=== PATIENT | female | born 1980 | race Caucasian/White ===

== ENCOUNTER 2018-04-09 22:50 | Inpatient (IN) | payer SELFPAY ==
[2018-04-09] MEDS ORDERED: LORazepam 1 MG TAB PO ONE (22:51)
--- NOTE | 2018-04-09 22:53 | EDPHY ---
H & P Source: Patient, Police Time Seen by Provider: 04/09/18 22:51 HPI/ROS: HPI CHIEF COMPLAINT: M1 hold by [place] [employer]. HISTORY OF PRESENT ILLNESS: 37-year-old female, history of suicide attempt, spent a year at [facility], inpatient psychiatric, has a history of bipolar disorder, presents emergency room by police in handcuffs for aggressive, agitated behavior, additionally being gravely disabled, and doing methamphetamine. Patient arrived to the emergency room rather agitated and upset. However she denies SI or HI. She states she has really been eating. Past Medical History: Bipolar disorder Past Surgical History: No recent surgery Social History: Methamphetamine use. Family History: Noncontributory ROS REVIEW OF SYSTEMS: 10 Systems were reviewed and negative with the exception of the elements mentioned in the history of present illness. Exam Constitutional agitated, angry, triage nursing summary reviewed, vital signs reviewed, awake/alert. Eyes normal conjunctivae and sclera, EOMI, PERRLA. HENT normal inspection, atraumatic, moist mucus membranes, no epistaxis, neck supple/ no meningismus, no raccoon eyes. Respiratory clear to auscultation bilaterally, normal breath sounds, no respiratory distress, no wheezing. Cardiovascular rate normal, regular rhythm, no murmur, no edema, distal pulses normal. Gastrointestinal soft, non-tender, no rebound, no guarding, normal bowel sounds, no distension, no pulsatile mass. Genitourinary no CVA tenderness. Musculoskeletal no midline vertebral tenderness, full range of motion, no calf swelling, no tenderness of extremities, no meningismus, good pulses, neurovascularly intact. Skin pink, warm, & dry, no rash, skin atraumatic. Neurologic awake, alert and oriented x 3, AAOx3, moves all 4 extremities equally, motor intact, sensory intact, CN II-XII intact, normal cerebellar, normal vision, normal speech. Psychiatric agitated angry. Heme/Lymph/Immune no lymphadenopathy. Differential Diagnosis: Includes but is not limited to in a particular order underlying schizophrenia, bipolar, mood disorder, depression, suicidal ideation , gravely disabled, drug abuse. Medical Decision Making: Plan for this patient IV establishment, blood draw for medical clearance, drug screen, patient on M1 hold by police. Will need mental health evaluation. 1 mg p.o. Ativan ordered for agitation/anxiety at this time. Re-evaluation: No acute events overnight. 7:00 a.m.: Signed over To Dr. Whitfield. Patient is pending mental health evaluation. Patient has had previous admissions to [facility]. Received Ativan last night sleeping. (Scout Cornelius) Constitutional: Initial Vital Signs Temperature (C) 36.4 C 04/09/18 23:00 Heart Rate 90 04/09/18 23:00 Blood Pressure 149/90 H 04/09/18 23:00 O2 Sat (%) 96 04/09/18 23:00 O2 Delivery Mode Room Air Allergies/Adverse Reactions: No Known Allergies Allergy (Unverified 04/09/18 22:56) Home Medications: Medication Instructions Recorded Depakote 04/09/18 Seroquel 04/09/18 Medical Decision Making Other Provider: I assumed care of this patient at 7:[address] Cornelius. At 11:30 a.m. She is becoming somewhat more anxious and agitated. 1 mg of p.o. Ativan ordered. She has been evaluated but the results of that evaluation are not yet available. Arrangements have been made for her to be transferred to [address] [place] [address] for patient psychiatric treatment. I have completed the EMTALA form. (Melanie Whitfield) - Data Points Laboratory Results: Laboratory Results 04/09/18 23:05 04/09/18 23:05 Medications Given: Discontinued Medications Lorazepam (Ativan) 1 mg PO EDNOW ONE Stop: 04/09/18 22:52 Last Admin: 04/09/18 23:15 Dose: 1 mg Lorazepam (Ativan) 1 mg PO EDNOW ONE Stop: 04/10/18 11:37 Last Admin: 04/10/18 11:39 Dose: 1 mg Departure - Departure Disposition: [facility] IP Clinical Impression: Bipolar 1 disorder Condition: Good Referrals: Patient,NotPresent [Unknown] - As per Instructions
[2018-04-09 23:25] LABS: PLATELET COUNT 206 10^3/uL (150-400)
[2018-04-10] MEDS ORDERED: LORazepam 1 MG TAB PO ONE ×2 (11:36→16:22)
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
--- NOTE | 2018-04-10 13:41 | ASMTTCLDSP ---
TLC Discharge Disposition Disposition: Answers: Admit Disposition Notes: Notes: In consultation with [facility] ED physician, Melanie Whitfield MD and on-call clinician, Marcus Valiente APN both concurred that pt appears to meet 27-65 criteria requiring psychiatric hospitalization as pt appears to be at risk of harm to gravely disabled due to a mental illness condition. Pt was given the 3N prohibited belongings list while in the ED. Discharge Concerns/Recommendations: Notes: Pt will be admitted to [facility] unit. Was patient given the Answers: Yes Inpatient Behavioral Health Prohibited Belongings List while in the ED? For inpatient Marcus Valiente admission, the following psychiatrist agreed to accept patient for admission to Behavioral Health ([facility]): Type of Hold: Answers: M1/72-hour Hold Hold initiated by: Answers: Police Date Signed: 04/10/2018 01:41 PM Electronically Signed By:Milvia Weathers
[2018-04-10] MEDS ORDERED: LORazepam 1 MG TAB ONE (16:23)
[2018-04-10] MEDS ORDERED: MAGNESIUM HYDROXIDE 30 ML UDCUP PO PRN (18:29)
[2018-04-10] MEDS ORDERED: MAG HYDROX/AL HYDROX/SIMETH 30 ML UDCUP PO PRN (18:29)
[2018-04-10] MEDS ORDERED: ACETAMINOPHEN 325 MG TAB PO PRN (18:30)
[2018-04-10] MEDS ORDERED: OLANZapine DISINTEGR 10 MG TAB PO PRN (18:31)
[2018-04-10] MEDS ORDERED: NICOTINE POLACRILEX 2 MG GUM B PRN (18:31)
[2018-04-10] MEDS ORDERED: DIVALPROEX ER 250 MG TAB PO SCH (19:00)
[2018-04-10] MEDS: LORazepam 0.5 MG TAB PO PRN (19:01)
[2018-04-10] MEDS: DIVALPROEX ER 500 MG TAB PO SCH (19:01)
[2018-04-10] MEDS: QUEtiapine FUMARATE 300 MG TAB PO SCH ×2 (19:01→19:07)
--- NOTE | 2018-04-11 08:38 | PDGENHP ---
History and Physical - Chief Complaint admitted to inpatient behavioral health - History of Present Illness Says she was released 10 days ago from [facility] inpatient psychiatric unit. Says she was there for a year. Came to [place] because her mom lives here, and she needs her mom's help to get her 5 year old daughter back (staying with patient's GM in [place] currently). Denies any cough, fever, congestion, sore throat, n/v/d/constipation. Denies headache/rashes/back pain/CP/shortness of breath. History Information - Allergies/Home Medication List Allergies/Adverse Reactions: No Known Allergies Allergy (Verified 04/10/18 16:02) Home Medications: Divalproex ER [Depakote ER 250 MG (*)] 250 mg PO HS 04/09/18 [Last Taken Unknown ] QUEtiapine FUMARATE [Seroquel 300mg (*)] 600 mg PO HS 04/09/18 [Last Taken Unknown] Divalproex ER [Depakote ER 500 MG (*)] 1,000 mg PO HS 04/10/18 [Last Taken Unknown] I have personally reviewed and updated: medical history, social history, surgical history - Past Medical History Additional medical history: bipolar disorder, TOB use, history of methamphetamine use, no PCP - Surgical History Reports: hysterectomy (says for endometriosis) - Social History Smoking Status: Light smoker Alcohol Use: Sober Additional social history: denies any current methamphetamine use. Has a daughter in [place] staying with her GM, and 2 teen sons staying with her Aunt also. Review of Systems Review of Systems: ROS: 10pt was reviewed & negative except for what was stated in HPI & below Physical Exam Physical Exam: Temp Pulse Resp BP Pulse Ox 97.5 F 86 16 141/63 H 95 04/11/18 06:00 04/11/18 06:00 04/11/18 06:00 04/11/18 06:00 04/11/18 06:00 Constitutional: no apparent distress, not in pain, unkempt Eyes: anicteric sclera, EOMI Ears, Nose, Mouth, Throat: moist mucous membranes, hearing normal Cardiovascular: regular rate and rhythym, no murmur, rub, or gallop Respiratory: no respiratory distress, no rales or rhonchi, clear to auscultation Gastrointestinal: normoactive bowel sounds, soft, non-tender abdomen, no palpable masses, No ascites, No hepatosplenomegally, No guarding, No rebound, No distension Skin: warm, normal color Psychiatric: interacting appropriately Lymph, Heme, Immunologic: no cervical LAD Lab Data & Imaging Review 04/09/18 23:05 12 23:05 WBC 5.44 10^3/uL (3.80-9.50) 04/09/18 23:05 RBC 3.95 10^6/uL (4.18-5.33) L 04/09/18 23:05 Hgb 13.0 g/dL (12.6-16.3) 04/09/18 23:05 Hct 38.5 % (38.0-47.0) 04/09/18 23:05 MCV 97.5 fL (81.5-99.8) 04/09/18 23:05 MCH 32.9 pg (27.9-34.1) 04/09/18 23:05 MCHC 33.8 g/dL (32.4-36.7) 04/09/18 23:05 RDW 12.7 % (11.5-15.2) 04/09/18 23:05 Plt Count 206 10^3/uL (150-400) 04/09/18 23:05 MPV 11.1 fL (8.7-11.7) 04/09/18 23:05 Neut % (Auto) 44.1 % (39.3-74.2) 04/09/18 23:05 Lymph % (Auto) 45.6 % (15.0-45.0) H 04/09/18 23:05 [place] % (Auto) 10.1 % (4.5-13.0) 04/09/18 23:05 Eos % (Auto) 0.0 % (0.6-7.6) L 04/09/18 23:05 Baso % (Auto) 0.0 % (0.3-1.7) L 04/09/18 23:05 Nucleat RBC Rel Count 0.0 % (0.0-0.2) 04/09/18 23:05 Absolute Neuts (auto) 2.40 10^3/uL (1.70-6.50) 04/09/18 23:05 Absolute Lymphs (auto) 2.48 10^3/uL (1.00-3.00) 04/09/18 23:05 Absolute Monos (auto) 0.55 10^3/uL (0.30-0.80) 04/09/18 23:05 Absolute Eos (auto) 0.00 10^3/uL (0.03-0.40) L 04/09/18 23:05 Absolute Basos (auto) 0.00 10^3/uL (0.02-0.10) L 04/09/18 23:05 Absolute Nucleated RBC 0.00 10^3/uL (0-0.01) 04/09/18 23:05 Immature Gran % 0.2 % (0.0-1.1) 04/09/18 23:05 Immature Gran # 0.01 10^3/uL (0.00-0.10) 04/09/18 23:05 Sodium 135 mEq/L (135-145) 04/09/18 23:05 Potassium 3.8 mEq/L (3.5-5.2) 04/09/18 23:05 Chloride 102 mEq/L (97-110) 04/09/18 23:05 Carbon Dioxide 15 mEq/l (22-31) L 04/09/18 23:05 Anion Gap 18 mEq/L (6-14) H 04/09/18 23:05 BUN 18 mg/dL (7-23) 04/09/18 23:05 Creatinine 0.8 mg/dL (0.6-1.0) 04/09/18 23:05 Estimated GFR > 60 04/09/18 23:05 Glucose 70 mg/dL (70-100) 04/09/18 23:05 Hemoglobin A1c 4.6 % (4.0-6.0) 04/10/18 22:19 Estim Average Glucose 85 mg/dL (68-126) 04/10/18 22:19 Calcium 9.6 mg/dL (8.5-10.4) 04/09/18 23:05 Total Bilirubin 0.9 mg/dL (0.1-1.4) 04/10/18 11:50 Conjugated Bilirubin 0.4 mg/dL (0.0-0.5) 04/10/18 11:50 Unconjugated Bilirubin 0.5 mg/dL (0.0-1.1) 04/10/18 11:50 AST 31 IU/L (14-46) 04/10/18 11:50 ALT 32 IU/L (9-52) 04/10/18 11:50 Alkaline Phosphatase 75 IU/L (38-126) 04/10/18 11:50 Total Protein 7.5 g/dL (6.3-8.2) 04/10/18 11:50 Albumin 4.8 g/dL (3.5-5.0) 04/10/18 11:50 Triglycerides 111 mg/dL (35-135) 04/10/18 11:50 Cholesterol 223 mg/dL (140-200) H 04/10/18 11:50 Cholesterol Risk Factr 0.8 (0.2-1.0) 04/10/18 11:50 LDL Cholesterol, Calc 140 mg/dL (70-100) H 04/10/18 11:50 LDL Risk Factor 0.8 (0.2-1.0) 04/10/18 11:50 VLDL Cholesterol 22 mg/dL (8-25) 04/10/18 11:50 Non-HDL Cholesterol 162 mg/dL (90-129) H 04/10/18 11:50 HDL Cholesterol 61 mg/dL (40-80) 04/10/18 11:50 LDL/HDL Ratio 2.29 RATIO (1.00-3.22) 04/10/18 11:50 Cholesterol/HDL Ratio 3.66 RATIO (1.00-4.44) 04/10/18 11:50 Beta HCG, Qual NEGATIVE 04/09/18 23:05 Urine Opiates Screen NEGATIVE (NEGATIVE) 04/09/18 23:05 Urine Barbiturates NEGATIVE (NEGATIVE) 04/09/18 23:05 Ur Phencyclidine Scrn NEGATIVE (NEGATIVE) 04/09/18 23:05 Ur Amphetamine Screen NEGATIVE (NEGATIVE) 04/09/18 23:05 U Benzodiazepines Scrn NEGATIVE (NEGATIVE) 04/09/18 23:05 Urine Cocaine Screen NEGATIVE (NEGATIVE) 04/09/18 23:05 U Marijuana (THC) Screen NEGATIVE (NEGATIVE) 04/09/18 23:05 Ethyl Alcohol < 10 mg/dL (0-10) 04/09/18 23:05 Assessment & Plan Assessment: Bipolar 1 disorder (Acute) -per inpatient behavioral health team TOB abuse -OK patch or gum if desired for withdrawal symptoms Thank you for asking the hospital medicine group for assisting in her care. Please contact us if any concerns or symptoms arise during her hospitalization.
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
--- NOTE | 2018-04-11 14:51 | ASMTCMCOM ---
CM Note CM Note Notes: CC was able to gather client's signature for Med-data and scanned to [facility] for poss. Medicaid. Date Signed: 04/11/2018 02:51 PM Electronically Signed By:Dennis Landry
--- NOTE | 2018-04-11 15:11 | ASMTCMCOM ---
CM Note CM Note Notes: Pt and CC completed MTP and placed in pt's chart. Pt. reports she is not suicidal. Pt. stated her mother, Elizabeth, called the police because pt. was not eating or taking her medications. Pt. stated she has court on 04/14 for possession of narcotics Pt. reports she will "sometimes have a beer". Pt. reports she "sometimes do meth if around". Pt. denied smoking THC. Pt. denied all other substance use. Pt. stated she can return home and is not upset with her mother. Pt. denied SI, Hi, AVH and paranoia. Pt reported to MD her 5 year old daughter is with her paternal grandmother. Pt. presents as in bed, falling asleep during interview, no eye contact, eyes closed, passive, and somewhat cooperative. Staff report pt. sleeping at least 10 hours and being medication compliant. Date Signed: 04/11/2018 03:10 PM Electronically Signed By:Rosa Owens
[2018-04-11] MEDS: LORazepam 0.5 MG TAB PO PRN ×2 (16:47→20:14)
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
[2018-04-11] MEDS: QUEtiapine FUMARATE 200 MG TAB PO SCH (20:14)
[2018-04-11] MEDS: DIVALPROEX ER 500 MG TAB PO SCH (20:14)
[2018-04-12] MEDS: LORazepam 0.5 MG TAB PO PRN (13:15)
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
--- NOTE | 2018-04-12 17:36 | SOAPPROG ---
SOAP Progress Note Assessment/Plan: Assessment: 37 yo with h/o polysubstance dependence and substance induced psychosis. Admitted after [facility] called 911 b/c patient had been using meth and was acting paranoid. Plan: 04/12/18 17:33 1. Patient continues to sleep most of the day (12+ hrs since last night). 2. Not participating in any groups or milieu activities. 3. [facility] expires tonight. Will change legal status to voluntary. 4. Likely d/c tomorrow once f/u appts finalized. 5. Patient encouraged to speak to [facility] to confirm she has a place to stay. Subjective: Patient has been sleeping most of the time she has been in hospital. She admits she usually needs a few days to catch up on sleep after she's been using a lot of meth. Patient has not exhibited any symptoms of psychosis since she was admitted. She does not exhibit any s/s of donna. She denies any SI/HI. Objective: Vital Signs Temp Pulse Resp BP Pulse Ox 36.4 C 78 16 98/60 L 94 04/11/18 06:00 04/12/18 06:00 04/12/18 06:00 04/12/18 06:00 04/12/18 06:00 MSE: Affect: Cooperative Mood: "OK" TP: Goal-directed TC: Denies any SI/HI Insight/Judgment: Poor - Time Spent With Patient Time Spent With Patient: 15" - Pending Discharge Pending Discharge Within 24 Hours: No Pending Discharge Within 48 Hours: No ICD10 Worksheet Patient Problems: Problems Problem Status Onset Bipolar 1 disorder Acute
[2018-04-12] MEDS: DIVALPROEX ER 500 MG TAB PO SCH (20:52)
[2018-04-12] MEDS: QUEtiapine FUMARATE 200 MG TAB PO SCH (20:52)
--- NOTE | 2018-04-13 09:20 | SOAPPROG ---
SOAP Progress Note Assessment/Plan: Assessment: Substance-induced psychosis. Schizoaffective Disorder, Bipolar Type. Slight improvement noted. (see subjective/objective note). Patient is not safe to discharge at this time as patient continues to exhibit signs of psychosis, and express psychosis symptoms. Patient requires continued inpatient care because of current psychosis, and requires inpatient level of care to stabilize in order to no longer be gravely disabled due to mental illness. Patient could benefit from continued inpatient hospitalization for crisis stabilization, safety, and medication evaluation. Plan: 1. Psychotropic medications: After reviewing options, risks, and benefits patient agrees to continue current, and increase Seroquel to 300 mg po QHS. No other medication changes at this time as more time is needed to determine ongoing tolerability and efficacy. Plan is to continue to observe patient for response and side effects from medications, and ongoing monitoring and evaluation. 2. Review with patient informed consent and recommendations for psychotropic medication treatment listed below 3. Labs: no additional labs at this time 4. Therapy: continue milieu and group therapy 5. Further investigation including gathering information from patients relatives and review of past case records to inform treatment plan. 6. Safety/Wellness plan and follow-up outpatient appointments to be established prior to discharge. Next steps are for patient to meet with care team assistant to plan a safe discharge plan and establish outpatient services for ongoing treatment. 7. Confer with inpatient treatment team regarding treatment plan. 8. Psychosocial stressors addressed through telephonic nurse case manager 9. Legal status: [facility] 10. Consider discharge later this week if patient is in stable condition, safe, and has a safe discharge plan. 11. Substance abuse interventions: methamphetamine PSYCHOTROPIC MEDICATION TREATMENT INFORMED CONSENT and RECOMMENDATIONS: Review nature of condition, diagnosis, and prognosis. Review nature and purpose of psychotropic medication treatment. Review type of psychotropic medications being ordered. Review risk and benefits of psychotropic medication treatment. Review probable length of time patient will need to take medications. Review risk and benefits of not undergoing psychotropic medication treatment. Review alternative treatments to psychotropic medications. Review psychotropic medications contraindications, drug-drug interactions, side effects, and importance of reporting any side effects to a psychiatric provider or nurse during inpatient hospitalization, and upon discharge to patients psychiatric outpatient provider, primary care provider, or other health ocular care technologist. Review importance of asking a nurse, psychiatric provider, or primary care provider any questions or problems concerning the psychotropic medications. Verify patient understands the information that has been provided, and understands, accepts, and agrees to psychotropic medications. Review patients safety plan and importance of patient to report to staff while hospitalized if patient is ever a danger to self/others, or unable to care for self, and upon discharge, the importance for patient to contact [facility] or [facility], or go to the nearest emergency room, if patient is ever a danger to self/others, or unable to care for self. Recommend that upon discharge patient establish medication management treatment with a psychiatric provider, establishes routine therapy appointments, and follow-up with primary care provider. Verify patient understands and agrees to these recommendations. 04/13/18 09:22 Subjective: Following up with patient for evaluation of psychosis and safety. Patient reports, "Doing better, just a little anxious about being here. I'm here because my mom said I wasn't taking my medications with food." Patient expresses the following psychiatric symptoms "a little anxious." Patient reports taking medications as prescribed, and describes response to medications as fair. Patient does not report undesirable side effects from the medications , and agrees to continue current medications. Patient agrees to increase Seroquel to 300 mg po QHS. Patient describes getting 8 hours of sleep, and reports she feels rested today. Objective: Vital Signs Temp Pulse Resp BP Pulse Ox 36.4 C 71 14 100/65 94 04/13/18 06:00 04/13/18 06:00 04/13/18 06:00 04/13/18 06:00 04/13/18 06:00 NURSING REPORT: Consulted with nursing for update on patients progress in treatment. Nurses report patient is not engaged in treatment, attends some groups, slept 8 hours, expresses the following psychiatric symptoms: anxious; exhibits the following psychiatric symptoms: disorganized, tangential; is eating all meals, is agreeable to medications and taking as prescribed with no report of side effects, with no s/s of EPS/akathisia, and denies SI/HI, denies A /V hallucinations, and denies delusions. MD REPORT FROM WEEKEND: Polysubstance addiction including meth, ETOH, LSD. Jeanine Argueta x 10 months in 2017, DCmarisel in March, spent 1.5 weeks in correction and then stayed at [facility] using meth. Restarted meds took at [facility]. SUBSTANCE ABUSE BRIEF INTERVENTION: Brief intervention regarding the risks of methamphetamine abuse is provided to patient with goal to reduce the risk of harm that could result from the continued use of methamphetamine, with the general aim to investigate the problem, raise awareness of problem, develop a solution with the patient, recommend a specific change or activity, and motivate the patient toward change. Assess substance abuse behavior and give supportive advice about harm reduction, recommend a reduction in hazardous/at- risk consumption patterns, and facilitate referrals for additional specialized treatment with healthcare interpreter. Intermediate goal is for the patient to quit and attend outpatient substance abuse treatment. Intervention focus on intermediate goals to allow for more immediate success in the treatment process to keep the patient motivated. Review following with patient: Methamphetamine use risks: Short-term: insomnia, irritability, aggressive behavior, hallucinations, delusions, intellectual deficits, anxiety, depression, convulsions, damage to blood vessels in the brain causing strokes, high fevers, collapse of the circulatory system. Long-term: damage to nerve pathways, maybe irreversibly; overstimulation to dopamine impairing dopamine transport and reducing efficiency of dopamine receptors, the reward system becomes worn out, leading to inability to experience pleasure for years. OUTPATIENT SUBSTANCE ABUSE TREATMENT: Patient referred to outpatient provider and treatment for continued treatment related to substance abuse. MSE: The patient is a well-nourished female to male looking stated chronological age. Attire is appropriate dress is casual. Grooming status is inappropriate and disheveled. Ambulation is independent. Gait is normal and coordinated. Posture is normal and relaxed. Eye contact is inappropriate and staring. Motor activity is appropriate with purposeful, organized, coordinated movements; with no involuntary movements. Attitude is fairly cooperative, defensive and guarded at times. Patient appears distracted and does not relate well to this interviewer. Language production is spontaneous. R/R/V normal. Articulation is clear. Patient reports mood as okay with flat, inappropriate affect. Patients thought process is non-linear and illogical, disorganized. Patient does not report suicidal/homicidal thoughts, ideas, or plans. Patient denies auditory, visual hallucinations. Patient denies delusions. Patient does not appear to be attending to internal stimuli. Patients attention and concentration are poor. Patient is oriented to person, place, time. Patients insight is poor. Patients judgment is poor. - Time Spent With Patient Time Spent With Patient: 15 minutes, met with patient individually. - Pending Discharge Pending Discharge Within 24 Hours: No Pending Discharge Within 48 Hours: No ICD10 Worksheet Patient Problems: Problems Problem Status Onset Bipolar 1 disorder Acute
[2018-04-13] MEDS: LORazepam 0.5 MG TAB PO PRN ×2 (09:27→13:40)
[2018-04-13] MEDS ORDERED: LORazepam 0.5 MG TAB PO PRN (13:59)
[2018-04-13] MEDS: GABAPENTIN 300 MG CAP PO SCH ×2 (16:02→20:16)
[2018-04-13] MEDS: DIVALPROEX ER 500 MG TAB PO SCH (20:17)
[2018-04-13] MEDS: QUEtiapine FUMARATE 200 MG TAB PO SCH (20:17)
--- NOTE | 2018-04-14 08:46 | SOAPPROG ---
SOAP Progress Note Assessment/Plan: Assessment: Substance-induced psychosis. Schizoaffective Disorder, Bipolar Type complicated by methamphetamine use. Slight improvement noted. (see subjective/ objective note). Patient is not safe to discharge at this time as patient continues to exhibit signs of psychosis, and express psychosis symptoms. Patient requires continued inpatient care because of current psychosis, and requires inpatient level of care to stabilize in order to no longer be gravely disabled due to mental illness. Patient could benefit from continued inpatient hospitalization for crisis stabilization, safety, and medication evaluation. Patient could benefit from therapeutic VPA level prior to discharge with level ordered for tomorrow AM. Patient likely reaching baseline and plan to discharge within the next few days. Plan: 1. Psychotropic medications: After reviewing options, risks, and benefits patient agrees to continue current medications. No medication changes at this time as more time is needed to determine ongoing tolerability and efficacy. Plan is to continue to observe patient for response and side effects from medications, and ongoing monitoring and evaluation. 2. Review with patient informed consent and recommendations for psychotropic medication treatment listed below 3. Labs: VPA level 04/15/18 4. Therapy: continue milieu and group therapy 5. Further investigation including gathering information from patients relatives and review of past case records to inform treatment plan. 6. Safety/Wellness plan and follow-up outpatient appointments to be established prior to discharge. Next steps are for patient to meet with child adolescent care to plan a safe discharge plan and establish outpatient services for ongoing treatment. 7. Confer with inpatient treatment team regarding treatment plan. 8. 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 Legal status: [facility] 10. Consider discharge later this week if patient is in stable condition, safe, and has a safe discharge plan. 11. Substance abuse interventions: methamphetamine PSYCHOTROPIC MEDICATION TREATMENT INFORMED CONSENT and RECOMMENDATIONS: Review nature of condition, diagnosis, and prognosis. Review nature and purpose of psychotropic medication treatment. Review type of psychotropic medications being ordered. Review risk and benefits of psychotropic medication treatment. Review probable length of time patient will need to take medications. Review risk and benefits of not undergoing psychotropic medication treatment. Review alternative treatments to psychotropic medications. Review psychotropic medications contraindications, drug-drug interactions, side effects, and importance of reporting any side effects to a psychiatric provider or nurse during inpatient hospitalization, and upon discharge to patients psychiatric outpatient provider, primary care provider, or other health childcare attendant. Review importance of asking a nurse, psychiatric provider, or primary care provider any questions or problems concerning the psychotropic medications. Verify patient understands the information that has been provided, and understands, accepts, and agrees to psychotropic medications. Review patients safety plan and importance of patient to report to staff while hospitalized if patient is ever a danger to self/others, or unable to care for self, and upon discharge, the importance for patient to contact [facility] or [facility], or go to the nearest emergency room, if patient is ever a danger to self/others, or unable to care for self. Recommend that upon discharge patient establish medication management treatment with a psychiatric provider, establishes routine therapy appointments, and follow-up with primary care provider. Verify patient understands and agrees to these recommendations. 04/14/18 08:48 Subjective: Following up with patient for evaluation of psychosis and safety. Patient reports, "Doing better, feel much better." Patient expresses the following psychiatric symptoms "little anxious." Patient reports taking medications as prescribed, and describes response to medications as fair. Patient does not report undesirable side effects from the medications, and agrees to continue current medications. Patient describes getting 8 hours of sleep, and reports she feels rested today. Objective: Vital Signs Temp Pulse Resp BP Pulse Ox 36.4 C 73 15 99/61 L 94 04/14/18 06:00 04/14/18 06:00 04/14/18 06:00 04/14/18 06:00 04/14/18 06:00 NURSING REPORT: Consulted with nursing for update on patients progress in treatment. Nurses report patient is not engaged in treatment, attends some groups, slept 8 hours, expresses the following psychiatric symptoms: anxious; exhibits the following psychiatric symptoms: anxious; is eating all meals, is agreeable to medications and taking as prescribed with no report of side effects , with no s/s of EPS/akathisia, and denies SI/HI, denies A/V hallucinations, and denies delusions. MD REPORT FROM WEEKEND: Polysubstance addiction including meth, ETOH, LSD. Jeanine Kendall x 10 months in 2017, DCd in March, [facility].5 [facility] in [facility] and then stayed at [facility] using meth. Restarted meds took at [facility]. Labs: VPA level 04/15/18 SUBSTANCE ABUSE BRIEF INTERVENTION: Brief intervention regarding the risks of methamphetamine abuse is provided to patient with goal to reduce the risk of harm that could result from the continued use of methamphetamine, with the general aim to investigate the problem, raise awareness of problem, develop a solution with the patient, recommend a specific change or activity, and motivate the patient toward change. Assess substance abuse behavior and give supportive advice about harm reduction, recommend a reduction in hazardous/at- risk consumption patterns, and facilitate referrals for additional specialized treatment with client care specialist. Intermediate goal is for the patient to quit and attend outpatient substance abuse treatment. Intervention focus on intermediate goals to allow for more immediate success in the treatment process to keep the patient motivated. Review following with patient: Methamphetamine use risks: Short-term: insomnia, irritability, aggressive behavior, hallucinations, delusions, intellectual deficits, anxiety, depression, convulsions, damage to blood vessels in the brain causing strokes, high fevers, collapse of the circulatory system. Long-term: damage to nerve pathways, maybe irreversibly; overstimulation to dopamine impairing dopamine transport and reducing efficiency of dopamine receptors, the reward system becomes worn out, leading to inability to experience pleasure for years. OUTPATIENT SUBSTANCE ABUSE TREATMENT: Patient referred to outpatient provider and treatment for continued treatment related to substance abuse. MSE: The patient is a well-nourished female to male looking stated chronological age. Attire is appropriate dress is casual. Grooming status is inappropriate and disheveled. Ambulation is independent. Gait is normal and coordinated. Posture is normal and relaxed. Eye contact is inappropriate and staring. Motor activity is appropriate with purposeful, organized, coordinated movements; with no involuntary movements. Attitude is fairly cooperative, defensive and guarded at times. Patient appears distracted and does not relate well to this interviewer. Language production is spontaneous. R/R/V normal. Articulation is clear. Patient reports mood as okay with flat and inappropriate affect. Patients thought process is blocked, linear and fairly logical, with no loose associations, no tangential thought. Patient does not report suicidal/homicidal thoughts, ideas, or plans. Patient denies auditory, visual hallucinations. Patient denies delusions. Patient does not appear to be attending to internal stimuli. Patients attention and concentration are poor. Patient is oriented to person, place, time. Patients insight is poor. Patients judgment is poor. - Time Spent With Patient Time Spent With Patient: 15 minutes, met with patient individually. - Pending Discharge Pending Discharge Within 24 Hours: Yes Pending Discharge Within 48 Hours: No Pending Discharge Date: 04/15/18 Pending Discharge Time: 11:00 ICD10 Worksheet Patient Problems: Problems Problem Status Onset Bipolar 1 disorder Acute
[2018-04-14] MEDS: GABAPENTIN 300 MG CAP PO SCH ×3 (10:01→20:32)
[2018-04-14] MEDS: DIVALPROEX ER 500 MG TAB PO SCH (18:01)
[2018-04-14] MEDS: QUEtiapine FUMARATE 200 MG TAB PO SCH (20:31)
[2018-04-15 06:54] VITALS: BP 91/52
--- NOTE | 2018-04-15 08:12 | ASMTBHDC ---
Notes Note: Notes: Please note, that client refused to sign RISHI for follow up care, etc. Client given next court date for her [place] [address] Case # [id number] and walk-in information for [facility]. Bus pass provided.* Date Signed: 04/15/2018 08:11 AM Electronically Signed By:Dennis Landry
[2018-04-15] MEDS: GABAPENTIN 300 MG CAP PO SCH (10:22)
--- NOTE | 2018-04-15 13:32 | BDS ---
REASON FOR ADMISSION: From the ED note dated 04/09/2018, patient with history of suicide attempt, psychiatric history including hospitalization at [facility] , history of bipolar disorder, presented to the emergency room by police in handcuffs for aggressive, agitated behavior, gravely disabled, and recent methamphetamine use. Patient arrived to the emergency room agitated and upset. Patient was admitted involuntarily on an M1 hold due to being gravely disabled due to a mental illness. The patient was admitted for safety, crisis stabilization, and medication management. ADMITTING DIAGNOSES: 1. Schizoaffective disorder, bipolar type. 2. Methamphetamine abuse. ADMISSION PHYSICAL EXAM: Patient was seen for history and physical on 2017, for medical clearance for inpatient psychiatric hospitalization and treatment. The patient was medically cleared for inpatient psychiatric hospitalization and treatment. For further details, please refer to history and physical dated 04/11/2018. ADMISSION LABS: 1. 04/09/2018: CBC was within normal limits, except red blood cells were low at 3.95, lymphocytes were elevated at 45.6, eosinophils were low at 0.0, basophils were low at 0.0, absolute eosinophils were low at 0.00, and absolute basophils were low at 0.00. 2. 04/09/2018: BMP was within normal limits, except carbon dioxide was low at 15. Anion gap was elevated at 18. 3. 04/09/2018: Hemoglobin A1c was within normal limits at 4.6. 4. 04/10/2018: Liver function was within normal limits. 5. 04/10/2018: Lipid panel within normal limits, except cholesterol was elevated at 223, LDL cholesterol calculated was elevated at 140, and non-HDL cholesterol was elevated at 162. 6. 04/09/2018: Beta hCG qualitative test was negative. 7. 04/09/2018: Toxicology screen negative for all substances of abuse and negative for ethyl alcohol. 8. 04/15/2018: Valproic acid 97.7 at current Depakote ER 1000 mg p.o. q.h.s. MAJOR PROCEDURES OR TESTS: None. HOSPITAL COURSE: The most prominent symptoms and behaviors while the patient was here were irritability, agitation. The patient spent much of her time in her room, sleeping, withdrawn. Treatment modalities utilized were milieu and group therapy. Depakote ER 1000 mg p.o. q.h.s. was continued to target mood symptoms, was tolerated with no report of side effects and with good response. Valproic acid level at time of admission was 97.7. Seroquel 300 mg p.o. q.h.s. was started to target mood and psychosis symptoms, was tolerated with no report of side effects and with good response. Gabapentin 300 mg p.o. t.i.d. was started to target anxiety symptoms, was tolerated with no report of side effects and with good response. Patient has improved considerably, with no signs of psychiatric symptoms and no psychiatric symptoms expressed at time of discharge. Patient reports she has improved since admission, states to be in stable condition, feels safe to discharge, and she contracts for safety. Patient's response to treatment was good. There were no adverse or unexpected results of treatment. Patient was safe throughout her stay, active in treatment , engaged in groups, and was appropriate with staff and other patients. Patient met with the treatment team prior to discharge to assess readiness to discharge and review discharge plan. The treatment team consensus is the patient is in stable condition, has a safe discharge plan, and is ready to discharge today. CONDITION ON DISCHARGE: Patient is in stable condition and is no longer a danger to self or others, and is not gravely disabled due to mental illness. Patient is no longer in need of inpatient level of care, and can be safely and effectively treated within the community. The patients level of risk at time of discharge is low. MSE: The patient is casually dressed and with good hygiene , and looks stated age. Patient is sitting, posture is upright, and position is relaxed. Patient appears awake, alert, and responds appropriately and reasonably during interview. Patient is engaged, relates well to interviewer, and emotional facial expression is appropriate to situation and changes appropriately with topic. Patient is cooperative, makes comfortable eye contact , and movements are voluntary, deliberate, coordinated, and smooth and even with no inappropriate movements. Patient makes laryngeal sounds effortlessly and shares conversation appropriately; pace of conversation is appropriate, and stream of talking is fluent; articulation is clear and understandable; word choice is effortless and appropriate for education level; completes sentences, occasionally pausing to think; rate and volume are appropriate for interview and setting. Patient reports mood as euthymic. Patients affect is stable with full variable range, congruent with mood, and appropriate to speech and circumstances. Patient has linear and logical thinking, with no loose associations, tangential thought, thought blocking, concrete thinking, or any other signs of formal thought disorder. Patient denies suicidal and homicidal ideation, and denies hallucinations and delusions. Patient appears to be a reliable historian with sound judgement and good insight into current condition. Patient has no apparent dysfunction in recent or remote memory noted , and no evidence of gross cognitive dysfunction noted at any point during the interview. DISCHARGE DIAGNOSES: 1. Schizoaffective disorder, bipolar type. 2. Methamphetamine abuse. CURRENT MEDICATIONS: After reviewing options, risks, and benefits with the patient, patient agrees to continue: 1. Depakote ER 1000 mg p.o. q.h.s. 2. Gabapentin 300 mg p.o. t.i.d. 3. Seroquel 300 mg p.o. q.h.s. Patient requests a prescription for gabapentin at time of discharge. Patient reports she has prescriptions at home for Depakote and Seroquel. A prescription for 30 days is provided for gabapentin. Prescription is reviewed with the patient at time of discharge to ensure accuracy and patient understanding. DISPOSITION: Patient left hospital independently and voluntarily with her mother after this BUILDING CONSTRUCTION SUPERVISOR met with patient and patient's mother to review discharge plan. FOLLOWUP: change management coordinator reports the appropriate outpatient follow-up services have been established and outpatient appointments have been scheduled. The patient received written instructions with times and dates of outpatient follow-up appointments. The following follow-up recommendations were provided to the patient at discharge: Continue psychotropic medications as prescribed and attend appointments as scheduled. Report any side effects to a psychiatric outpatient provider, a primary care provider, or other health health care liaison. Address any questions or problems concerning the psychotropic medications with a psychiatric outpatient provider, a primary care provider, or other health health care liaison. Contact [facility] or [facility], or go to the nearest emergency room, if you are ever a danger to yourself/others, or unable to care for yourself. As soon as possible, establish a routine medication management treatment with a psychiatric provider, establish routine therapy appointments, and follow-up with a primary care provider. LEGAL COURSE: The patient was admitted involuntarily on an M1 hold. The patient was placed on a short-term certification during the course of her hospitalization. Patient discharged today independently and voluntarily, and short-term certification was terminated at time of discharge. ATTITUDE AT TIME OF DISCHARGE: The patients attitude was positive at time of discharge, and patient reports looking forward to discharging today. The patient reports she feels safe to discharge, is no longer a danger to herself or others, is in stable condition, and contracts for safety. Patient states she will continue medications as prescribed, and establish medication management treatment with an outpatient provider after discharge. Patient reports she understands the information that has been provided to her, and she understands, accepts, and agrees to psychotropic medications. Patient describes internal protective factors as the coping skills she has learned while hospitalized here, and she plans to continue to practice these coping skills after discharge. FAMILY MEETING: This BUILDING CONSTRUCTION SUPERVISOR met with patient and patient's mother at time of discharge at patient's request to assess readiness to discharge and review discharge plan. Patient's mother reports patient is safe to discharge and has a safe discharge plan. LABS AND STUDIES: There were no pending labs or studies at time of discharge. ADVANCE DIRECTIVES: There were no advance directives on file, and patient was full code during this hospitalization. The following psychotropic medication treatment informed consent and recommendations were provided to the patient at time of discharge. Patient reports she understands, accepts, and agrees to the information that has been provided. PSYCHOTROPIC MEDICATION TREATMENT INFORMED CONSENT and RECOMMENDATIONS: Review nature of condition, diagnosis, and prognosis. Review nature and purpose of psychotropic medication treatment. Review type of psychotropic medications being prescribed. Review risk and benefits of psychotropic medication treatment. Review probable length of time will need to take medications. Review risk and benefits of not undergoing psychotropic medication treatment. Review alternative treatments to psychotropic medications. Review psychotropic medications contraindications, side effects, and importance of reporting any side effects to a psychiatric provider, primary care provider, or other health health care liaison. Review importance of her asking a psychiatric provider or primary care provider any questions or problems concerning the psychotropic medications. Review importance of reporting to a psychiatric provider, primary care provider, or other health health care liaison if she plans to or becomes . Review safety plan and the importance to contact [facility] or [facility] , or go to the nearest emergency room, if ever a danger to yourself/others, or unable to care for yourself. Recommend upon discharge to establish routine medication management treatment with a psychiatric provider, establish routine therapy appointments, and follow-up with a primary care provider. Verify patient understands, accepts, and agrees to the information that has been provided. /[id number]/[id number]
== END 2018-04-15 12:45 | disposition home or self-care (01) | DRG 885 ==
LOC: BBEH 04-10 18:10
PROVIDERS: ADMIT Registered Nurse; ATTEND Registered Nurse
DX: F25.0 Schizoaffective disorder, bipolar type (principal); F15.10 Other stimulant abuse, uncomplicated
CPT/HCPCS: 80305; G0480